=== PATIENT | female | born 1950 | race Caucasian/White ===

== ENCOUNTER 2020-11-07 18:01 | Observation (INO) | payer MEDICARE ==
[2020-11-07] VITALS (21 sets, daily range): BP systolic 128–144; BP diastolic 63–83
[2020-11-07] MEDS ORDERED: DEXAMETHASONE SOD PHOSPHATE 10MG/ML 1ML VIAL ONE (19:15)
[2020-11-07] MEDS ORDERED: SUCCINYLCHOLINE 200MG/10ML SYR ONE (19:15)
[2020-11-07] MEDS ORDERED: LIDOCAINE PF 2% 5ML ABBOJECT ONE (19:15)
[2020-11-07] MEDS ORDERED: GLYCOPYRROLATE 1 MG/5 ML SYRINGE ONE (19:16)
[2020-11-07] MEDS ORDERED: MIDAZOLAM HCL 1 MG/ML 2ML VIAL ONE (19:16)
[2020-11-07] MEDS ORDERED: ONDANSETRON HCL 4 MG/2 ML VIAL ONE (19:16)
[2020-11-07] MEDS ORDERED: PROPOFOL 10 MG/ML 20ML VIAL IV ONE (19:17)
[2020-11-07] MEDS ORDERED: ROCURONIUM 10MG/1ML SYR 10 MG/ML ML ONE (19:17)
[2020-11-07] MEDS ORDERED: NEOSTIGMINE 5MG/5ML SYR IV ONE (19:17)
[2020-11-07] MEDS ORDERED: FENTANYL CITRATE PF 50 MCG/1 ML 2ML VIAL ONE (19:18)
[2020-11-07 19:19] LABS: POTASSIUM 3.7 mmol/L (3.5-5.1)
[2020-11-07] MEDS ORDERED: IOHEXOL-350 50ML VIAL IV ONE (19:21)
[2020-11-07 19:22] LABS: BASOPHILS % (AUTO) 0.4 % (0.0-5.0); EOSINOPHILS % (AUTO) 2.7 % (0.0-8.0); HEMATOCRIT 40.9 % (36-48); LYMPHOCYTES % (AUTO) 25.9 % (21.0-51.0); MEAN CORPUSCULAR HEMOGLOBIN 28.2 pg (27.0-33.0); MEAN CORPUSCULAR VOLUME 88.1 fL (79-99); MONOCYTES % (AUTO) 7.9 % (3.0-13.0); PLATELET COUNT (AUTO) 237 K/uL (130-400); RED BLOOD CELL COUNT(AUTO) 4.64 MIL/uL (4.00-5.50); RED CELL DISTRIBUTION WIDTH 13.4 % (11.0-15.5)
[2020-11-07 19:25] LABS: ALBUMIN 3.7 g/dL (3.5-5.0); BILIRUBIN,TOTAL 0.5 mg/dL (0.2-1.0); TOTAL PROTEIN, SERUM 7.7 g/dL (6.0-8.3)
[2020-11-07] MEDS ORDERED: CEFTRIAXONE SODIUM 1 GM ONE (20:21)
[2020-11-07] MEDS ORDERED: ESMOLOL HCL 10 MG/ML 10 ML VIAL ONE (20:35)
[2020-11-08] VITALS (7 sets, daily range): BP systolic 110–145; BP diastolic 60–82
[2020-11-08] MEDS ORDERED: KETOROLAC TROMETHAMINE 15MG/ML IV PRN (02:15)
[2020-11-08] MEDS ORDERED: HYDROCODONE/ACETAMINOPHEN 7.5/325 MG TAB PO PRN (02:15)
[2020-11-08] MEDS ORDERED: 1/2 NORMAL SALINE + 20 MEQ KCL 1,000 ML IV SCH (02:15)
[2020-11-08] MEDS ORDERED: ONDANSETRON HCL 4 MG/2 ML VIAL IVP PRN (04:30)
[2020-11-08] MEDS ORDERED: 1/2 NORMAL SALINE 1,000 ML IV ONE (04:42)
[2020-11-08] MEDS ORDERED: POTASSIUM CHLORIDE 20MEQ/100ML 100 ML IV ONE (04:44)
[2020-11-08] MEDS ORDERED: TRAMADOL HCL 50 MG TABLET PO PRN (05:45)
[2020-11-08] MEDS ORDERED: TAMSULOSIN HCL 0.4 MG CAP.ER.24H PO SCH (09:00)
[2020-11-08] MEDS ORDERED: CEPHALEXIN 500 MG CAPSULE PO SCH (09:00)
== END 2020-11-08 11:46 | disposition home or self-care (01) ==
LOC: EDH 18:01 → 3BH 18:02 → UNDOADMOB 18:02 → 3BH 23:46
PROVIDERS: ADMIT Urology; ATTEND Urology
DX: N13.2 Hydronephrosis with renal and ureteral calculous obstruction (principal); Z87.891 Personal history of nicotine dependence; Z90.49 Acquired absence of other specified parts of digestive tract; Z90.10 Acquired absence of unspecified breast and nipple
CPT/HCPCS: 36415; 52356; 74420; 80053; 82360; 85025; 96360; 96361; 99284; A4354; A4358; A4600; A4649; A4930; C1758; C1769; C1894; C2617; G0378 ×11; J0330; J0696; J1100; J2001; J2250; J2405; J2704; J2710; J3010; J3480 ×2; J3490 ×2; J7030; Q9967